=== PATIENT | female | born 1950 | race Caucasian/White ===

== ENCOUNTER 2022-06-24 00:46 | Emergency (ER) | payer MEDICARE ==
[2022-06-24] MEDS ORDERED: Sodium Chloride 0.9% 10 ML Syringe FLUSH PRN (00:47)
[2022-06-24 01:53] LABS: ESTIMATED GFR 80 mL/min (>60); TROPONIN I HIGH SENSITIVITY 4.5 pg/mL (<=60.3)
== END 2022-06-24 02:22 | disposition home or self-care (01) ==
LOC: JP.ED 00:46
DX: I47.1 Supraventricular tachycardia (principal); E78.00 Pure hypercholesterolemia, unspecified; E11.9 Type 2 diabetes mellitus without complications; Z88.2 Allergy status to sulfonamides; Z88.8 Allergy status to other drugs, medicaments and biological substances; Z79.82 Long term (current) use of aspirin; Z79.899 Other long term (current) drug therapy; Z79.84 Long term (current) use of oral hypoglycemic drugs
CPT/HCPCS: 36415; 80053; 84443; 84484; 85025; 93005; 99285; J3490

== ENCOUNTER 2024-07-03 15:03 | Emergency (ER) | payer MEDICARE ==
[2024-07-03] MEDS: ceFAZolin 1 GM Vial IM ONE (18:28)
[2024-07-03] MEDS: Water For Injection, Sterile 20 ML ONE (18:29)
[2024-07-03] MEDS: Bacitracin Oint 1 GM U/D Packet TOP ONE (18:29)
[2024-07-03] MEDS: Lidocaine 1% 5 ML VIAL INJECT ONE (18:29)
== END 2024-07-03 19:39 | disposition home or self-care (01) ==
LOC: JP.ED 15:03
DX: S62.610B Displaced fracture of proximal phalanx of right index finger, initial encounter for open fracture (principal); E11.9 Type 2 diabetes mellitus without complications; E78.00 Pure hypercholesterolemia, unspecified; Z90.710 Acquired absence of both cervix and uterus; Z79.84 Long term (current) use of oral hypoglycemic drugs; Z79.899 Other long term (current) drug therapy; Z79.82 Long term (current) use of aspirin; Z88.2 Allergy status to sulfonamides; Z88.8 Allergy status to other drugs, medicaments and biological substances; W23.0XXA Caught, crushed, jammed, or pinched between moving objects, initial encounter
CPT/HCPCS: 12002; 26725; 73130; 73140; 96372; 99283; J0690